=== PATIENT | female | born 2000 | race Hispanic/Latino ===

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

== ENCOUNTER 2024-07-02 17:42 | Emergency (ER) | payer OTHER ==
[2024-07-02] MEDS ORDERED: Lidocaine 1% PF 5 ML VIAL ONE ×2 (19:10→19:32)
[2024-07-02] MEDS ORDERED: Boostrix 0.5 ML (Tdap) VIAL (>/=7 yrs of age) ONE (19:13)
== END 2024-07-02 20:29 | disposition home or self-care (01) ==
LOC: ERS 17:42
DX: S61.211A Laceration without foreign body of left index finger without damage to nail, initial encounter (principal); Z23 Encounter for immunization; W26.0XXA Contact with knife, initial encounter; Y92.090 Kitchen in other non-institutional residence as the place of occurrence of the external cause
CPT/HCPCS: 12001; 90471; 90715